=== PATIENT | female | born 1960 | race Caucasian/White ===

== ENCOUNTER → 2016-10-14 | Day surgery (SDC) | payer MEDICARE ==
[~2016-10-14] MED LIST: ACIPHEX20 MG; AMITRYPTYLINE PO; ASPIRIN PO; B12 HEALTH1000 MCG/1 PO; CATAFLAM50 MG PO; CITALOPRAM HBR40 MG PO; CYCLOBENZAPRINE5 MG PO; FLEXERIL10 MG PO; FOLIC ACID PO; IMITREX25 MG PO; IMMODIUM1 MG/5 M1 PO; K-DUR20 ME1 PO; KCL PO; LISINOPRIL10 MG; LISINOPRIL10 MG PO; LORTAB 7.5-5001 TAB PO; MEDROL4 MG/DOSE- PO; MOBIC PO; NEURONTIN600 MG PO; NICOTINE TRANSD14 MG EXT; OMEPRAZOLE40 M1 PO; PERCOCET 5-3251 TAB PO; PERCOCET5/325 PO; PHENERGAN25 M1 PO; PRILOSEC20 M1 PO; PRINIVIL10 MG PO; PROTONIX PO; RANITIDINE HCL150 M1 PO; REGLAN10 MG PO; SUMATRIPTAN SUC25 MG PO; THORAZINE25 MG PO; TIZANIDINE HCL2 M1 PO; TIZANIDINE HCL2 MG PO; TYLENOL #3 PO; TYLOX 5/500 CAP1 CAP PO; VISTARIL50 MG PO; VITAMIN B12-FO1 EACH PO; VOLTAREN50 MG PO; ZANAFLEX2 M1 PO; ZIPSOR25 MG PO; ZOFRAN; ZOFRAN PO; [UNRECOGNIZED DRUG - OTHER]
--- NOTE | ~2016-10-14 | OR ---
Unit #: [id number] #: [id number] Patient: URBANO CAMPUZANO [id number] [address] [address] [id number] MR#: [id number] NAME: URBANO CAMPUZANO ROOM: Date of Procedure: 10/14/2016 Admission Date: 10/14/2016 Surgeon: Dequan Alonzo M.D. : 1960 Attending Physician: Dequan Alonzo M.D. Referring Physician: Dequan Alonzo M.D. Primary Care Physician: Dimitri Garcia M.D. OPERATIVE REPORT SERVICES PROVIDED 1. Therapeutic lumbar epidural steroid injection. 2. Fluoroscopy of the lumbosacral spine. 3. IV sedation to facilitate above. PREOPERATIVE DIAGNOSES 1. Degenerative disk disease at L5-S1 and left lumbar radiculopathy. 2. Other medical history. POSTOPERATIVE DIAGNOSES 1. Degenerative disk disease at L5-S1 and left lumbar radiculopathy. 2. Other medical history. PROCEDURE PERFORMED Lumbar epidural steroid injection using fluoroscopy. FOLLOW-UP/REVIEW OF SYSTEMS/PHYSICAL EXAM Ms. Campuzano is here for lumbar epidural steroid injection to address the lumbar radiculopathy. She has no medical contraindications to the procedure that was performed as follows with her consent. INDICATIONS/COMMENTS AND CONSENTS/STATEMENT OF MEDICAL NECESSITY The patient's current medications, allergies and vital signs are documented in the nursing assessment. The risks and benefits of the intervention(s) were discussed with the patient in detail including but not limited to infection, bleeding, meningitis, steroid induced side-effects, nerve damage, paralysis, spinal headaches, neuritis, persistent or worsening pain. The patient wishes to proceed. A separate pain assessment is also in the chart. I have reviewed all of this and have reviewed this with the patient. A current History and Physical is also attached. DESCRIPTION OF PROCEDURE(S) 1. Monitoring and positioning: After appropriate discussions it was decided to perform the procedure under local anesthesia with supplemental intravenous sedation. Vital signs were monitored in pre, intra and post-procedure phase. Monitoring included EKG, non-invasive BP, pulse oximetry, and temperature. These are documented and were stable. Appropriate supports and restraints were used. 2. Sedation: A total of 2 mg of Versed and 100 mcg of fentanyl was administered. 3. Lumbar epidural injection/fluoroscopy: The patient was placed in the Unit #: [id number] #: [id number] Patient: URBANO CAMPUZANO sitting position. Positional supports were used. Fluoroscopy of the lumbar spine was performed. Sterile prep and drape with carried out with ChloraPrep. Local anesthesia was with infiltrated with 3 mL of preservative-free 1% Lidocaine. Once anesthesia was established, a 22-gauge Tuohy epidural needle was inserted at the L5-S1 level epidurally, using a left interlaminar approach, loss of resistance to saline technique, and with fluoroscopic guidance. Needle placement tested negative for subarachnoid and intravascular placement. An intra-operative epidurogram was now performed. Intra-operative epidurogram: 1 mL(s) of Isovue-M300 was injected through the epidural needle under continuous fluoroscopy. The dye was seen to spread to L5 in the cephalad direction, and to S1 in the caudal direction. The spread of the dye was uniform. 1 mL of preservative-free normal saline was used to irrigate the dye off the epidural space. There was no intravascular or intrathecal spread of contrast. A lumbar epidural steroid injection was now performed using total of 3 mL of solution containing 0.2% bupivacaine and 80 mg of Depo-Medrol. Fluoroscopic imaging confirmed spread of medication. The needle was then removed intact. The skin was washed off. Prep solution and dressings were applied at the injection site. The patient tolerated the procedure well. The patient was then observed in the recovery area for 30 minutes. RESULTS The patient had a consistent block with the dose of local anesthetic used. Pain relief was satisfactory. There were no complications or side effects. DISCHARGE CONDITION 1. Patient was discharged in satisfactory condition accompanied by a family member. 2. Post-procedure instructions were given. PLAN(S) The patient will return to the clinic in 2 months for re-assessment and office visit. I thank the patient's referring physician for the opportunity to participate in the care of this patient. Please do not hesitate to call for any questions regarding this patient s pain management. Dictated by... Nacho Reynolds TD: 10/15/2016 03:30 JOB #: [id number] Unit #: [id number] #: [id number] Patient: URBANO CAMPUZANO OPERATIVE REPORT X Dequan Alonzo MD PROCEDURE OPERATIVE NOTE
== END | disposition home or self-care (01) ==
LOC: CCSC 08:45
PROVIDERS: Anesthesiology
PROC: 3E0S3BZ Introduction of Anesthetic Agent into Epidural Space, Percutaneous Approach (ICD-10-PCS; 2016-10-14)
PROC: 3E0S33Z Introduction of Anti-inflammatory into Epidural Space, Percutaneous Approach (ICD-10-PCS; principal; 2016-10-14 09:30)
DX: M51.17 Intervertebral disc disorders with radiculopathy, lumbosacral region (principal); M48.06 Spinal stenosis, lumbar region; K21.9 Gastro-esophageal reflux disease without esophagitis; F17.200 Nicotine dependence, unspecified, uncomplicated; I10 Essential (primary) hypertension; Z79.899 Other long term (current) drug therapy; Z98.890 Other specified postprocedural states
CPT/HCPCS: J1040; J2250; J3010